=== PATIENT | male | born 1995 | race Hispanic/Latino ===

== ENCOUNTER 2021-07-31 04:44 | Emergency (ER) | payer SELFPAY ==
[2021-07-31] MEDS ORDERED: Ondansetron PF 4 MG/2 ML Vial ONE (05:02)
[2021-07-31] MEDS ORDERED: Promethazine HCl 25 MG/ML VIAL ONE (05:03)
[2021-07-31 05:10] LABS: #Basophils 0.1 10x3/uL (0.0-0.2); #Monocytes 0.3 10x3/uL (0.0-1.1); #Neutrophils 2.6 10x3/uL (1.5-8.4); %Basophils 1.3 % (0.0-2.0); %Eosinophils 0.2 % (0.0-6.0); %Lymphocytes 46.4 % (18.0-47.0); %Monocytes 4.9 % (0.0-10.0); Hemoglobin 16.1 g/dL (13.5-17.5); Mean Corpuscular HGB CONC 36.2 g/dL (32.0-36.0); Mean Corpuscular Hemoglobin 31.4 pg (27.0-33.0); Mean Corpuscular Volume 86.7 fl (81.2-95.1); Mean Platelet Volume 9.6 fl (7.4-10.4); Platelet Count 328 10x3/uL (150-450); RBC Distribution Width 12.1 % (11.5-14.5); Red Blood Cell (RBC) Count 5.13 10x6/uL (4.32-5.72); White Blood Cell (WBC) Count 5.5 10x3/uL (3.5-10.5)
[2021-07-31] MEDS ORDERED: Thiamine HCl 200 MG/2 ML VIAL SLOW IVP SCH (05:15)
[2021-07-31] MEDS ORDERED: Folic Acid 1 MG, Multivitamins, Adult 10 ML in Dextrose 5 %-0.45 % NaCl 1,000 ML IV SCH (05:15)
[2021-07-31 05:25] LABS: ALT (SGPT) 48 U/L (8-55); AST (SGOT) 35 U/L (5-34); Albumin 4.6 g/dL (3.5-5.0); Alcohol 203 mg/dL (Less than 10); Alkaline Phosphatase 98 U/L (40-110); Anion Gap 19 mmol/L (10-20); BUN (Urea Nitrogen) 18 mg/dL (8.9-20.6); Bilirubin, Total 0.9 mg/dL (0.2-1.2); Calc. Creatinine Clearance 0 mL/min (70-130); Carbon Dioxide 26 mmol/L (22-29); Chloride 97 mmol/L (98-107); Globulin 3.3 g/dL (2.4-3.5); Glucose 100 mg/dL (70-105); Lipase 25 U/L (8-78); Potassium 3.8 mmol/L (3.5-5.1); Protein, Total 7.9 g/dL (6.0-8.3); Sodium 138 mmol/L (136-145)
== END 2021-07-31 08:45 | disposition home or self-care (01) ==
LOC: CSHERS 04:44
DX: F10.129 Alcohol abuse with intoxication, unspecified (principal); Y90.2 Blood alcohol level of 40-59 mg/100 ml; K29.20 Alcoholic gastritis without bleeding
CPT/HCPCS: 71045; 80053; 80307; 83690; 85025; 93005; 96365; 96366; 96367; 96375; J2405; J2550; J7042